=== PATIENT | female | born 1930 | race Caucasian/White ===

== ENCOUNTER 2017-02-27 05:22 | Day surgery (SDC) | payer MEDICARE, OTHER ==
[~2017-02-27 05:22] MED LIST: *UNABLE3; ACET500CAP PO; ALIGN4 MG PO; ALLEGRA180 PO; AMRIX30 MG PO; ARICEPT10 PO; ARICEPT23 MG PO; ASAB PO; ASTELIN NAS; AVALIDE1 TAB PO; AVAP150 PO; CEFT2 PO; CYMBALTA60 PO; DIGITEK0.125 MG PO; FEMARA PO; FISH OIL; FLONASE NAS; JANTOVEN5 MG PO; KLONO5 PO; LEVOTHYROXIN100 MCG PO; LEVOTHYROXIN75 MCG PO; LIMBREL500 MG OR; LIPO FLAVONOID; NEUR300 PO; NEXIUM20 M1 PO; NIASPAN500 PO; ORAZINC110 MG PO; OS500+D PO; OSTEO BI-FLEX1 EACH PO; OSTEO BIOFLEX; POT GLUCONAT550 M1 OR; SKELAXIN8 PO; SYNTHROID137 MCG PO; THERGRANM PO; TOPXL25 PO; TOVIAZ; TOVIAZ4 MG PO; VITAMIN B-121000 MC1 SL; VITAMIN D1000 UNI1 PO; VITAMIN D31000 UNIT PO; VOLTAREN1 % TOP; ZOCOR10 PO; ZOCOR20 PO; ZOL50 PO; ZYRTEC ALLGY10 MG PO
== END 2017-02-27 08:08 | disposition home or self-care (01) ==
LOC: SDC 05:22
PROVIDERS: Orthopaedic Surgery
PROC: 3E0S3BZ Introduction of Anesthetic Agent into Epidural Space, Percutaneous Approach (ICD-10-PCS; 2017-02-27)
PROC: 3E0R3BZ Introduction of Anesthetic Agent into Spinal Canal, Percutaneous Approach (ICD-10-PCS; principal; 2017-02-27 08:00)
DX: M54.16 Radiculopathy, lumbar region (principal); I25.10 Atherosclerotic heart disease of native coronary artery without angina pectoris; I10 Essential (primary) hypertension; E78.00 Pure hypercholesterolemia, unspecified; F32.9 Major depressive disorder, single episode, unspecified; E03.9 Hypothyroidism, unspecified; K21.9 Gastro-esophageal reflux disease without esophagitis; M19.90 Unspecified osteoarthritis, unspecified site; D64.9 Anemia, unspecified; Z95.1 Presence of aortocoronary bypass graft; Z88.0 Allergy status to penicillin; Z88.5 Allergy status to narcotic agent; Z88.8 Allergy status to other drugs, medicaments and biological substances; Z90.710 Acquired absence of both cervix and uterus; Z98.890 Other specified postprocedural states
CPT/HCPCS: J2250; J3010; Q9967